=== PATIENT | female | born 1980 | race Hispanic/Latino ===

== ENCOUNTER 2022-07-11 23:00 | Emergency (ER) | payer SELFPAY ==
[2022-07-11] MEDS ORDERED: NA CHLORIDE 0.9% 1,000 ML ONE (23:10)
[2022-07-11 23:37] LABS: Urine Blood 3+ (Negative); Urine Glucose Negative (Negative); Urine Protein 1+ (Negative); Urine Specific Gravity <=1.005 (1.005-1.030)
[2022-07-11 23:57] LABS: Absolute Lymphocytes (CBC) 2.4 K/uL (0.7-4.9); Hematocrit 31.3 % (36.0-45.0); Lymphocytes % 29.1 % (15.3-44.8); MPV 7.5 fL (7.6-11.3); RBC Red Blood Cell Count 4.59 M/uL (3.86-4.86)
[2022-07-12 00:10] LABS: Barbiturates NEGATIVE (NEGATIVE); Benzodiazepines NEGATIVE (NEGATIVE); Cocaine NEGATIVE (NEGATIVE); METHAMPHETAM NEGATIVE (NEGATIVE); Methadone NEGATIVE (NEGATIVE); Opiates NEGATIVE (NEGATIVE); Phencyclidine NEGATIVE (NEGATIVE); THC Cannibis NEGATIVE (NEGATIVE)
[2022-07-12 00:11] LABS: Protime INR 1.07
[2022-07-12 00:33] LABS: SARS-COV-2 RT PCR NEGATIVE (NEGATIVE)
[2022-07-12 00:34] LABS: ALT/SGPT 17 U/L (12-78); AST/SGOT 9 U/L (15-37); Albumin 3.8 g/dL (3.4-5.0); Alkaline Phosphatase 92 U/L (45-117); BUN Blood Urea Nitrogen 6 mg/dL (7-18); Bicarbonate 27 mmol/L (21-32); Bilirubin Direct 0.1 mg/dL (0-0.2); Bilirubin Total 0.5 mg/dL (0.2-1.0); Glomerular Filtration Rate 113 ml/min (=/>90); Glucose Level 94 mg/dL (74-106); Protein, Total 7.3 g/dL (6.4-8.2); Sodium Level 138 mmol/L (136-145)
[2022-07-12 00:49] LABS: Potassium 2.9 mmol/L (3.5-5.1)
--- NOTE | 2022-07-12 01:00 | EDPHYS ---
Physician Documentation [facility] Name: Charlotte Frey Age: 41 yrs Sex: Female : 1980 Arrival Date: 07/11/2022 Time: 23:03 Bed 12 Private MD: ED Physician Cristino Moore HPI: 07/12 00:55 This 41 yrs old Female presents to ER via EMS with complaints of schizophrenia. rn 00:55 Pt states has been walking from [place], trying to make her way to [place], was rn found walking outside by PD, called EMS because of history of schizophrenia and patient not from here. Pt states she is homeless and walks from town to town sleeping on benches. No recent illness. Off her meds for months. Denies hallucinations/suicidal ideation/homicidal ideations. States would not have sought help if not made to do so by police. . The patient has experienced similar episodes in the past. The patient has not recently seen a physician. 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 - Social history:: Smoking status: unknown. - Family history:: not pertinent. - Hospitalizations: : No recent hospitalization is reported. ROS: 07/12 00:55 Constitutional: Negative for fever, chills, and weight loss, Eyes: Negative for injury, rn pain, redness, and discharge, Neck: Negative for injury, pain, and swelling, Cardiovascular: Negative for chest pain, palpitations, and edema, Respiratory: Negative for shortness of breath, cough, wheezing, and pleuritic chest pain, Abdomen/GI: Negative for abdominal pain, nausea, vomiting, diarrhea, and constipation, Back: Negative for injury and pain, MS/Extremity: Negative for injury and deformity, Skin: Negative for injury, rash, and discoloration, Neuro: Negative for headache, weakness, numbness, tingling, and seizure, Psych: Negative for depression, anxiety, suicide ideation, homicidal ideation, and hallucinations. Exam: 00:55 Constitutional: This is a well developed, well nourished patient who is awake, alert, rn and in no acute distress. Head/Face: Normocephalic, atraumatic. Eyes: Pupils equal round and reactive to light, extra-ocular motions intact. Lids and lashes normal. Conjunctiva and sclera are non-icteric and not injected. Cornea within normal limits. Periorbital areas with no swelling, redness, or edema. Neck: Trachea midline, no thyromegaly or masses palpated, and no cervical lymphadenopathy. Supple, full range of motion without nuchal rigidity, or vertebral point tenderness. No Meningismus. Cardiovascular: Regular rate and rhythm. No pulse deficits. Respiratory: No increased work of breathing, no retractions or nasal flaring. Abdomen/GI: Soft, non-tender Back: No spinal tenderness. No costovertebral tenderness. Full range of motion. Skin: Warm, dry MS/ Extremity: Pulses equal, no cyanosis. Neurovascular intact. Full, normal range of motion. Equal circumference. Neuro: Awake and alert, GCS 15, oriented to person, place, time, and situation. Cranial nerves II-XII grossly intact. Motor strength 5/5 in all extremities. Sensory grossly intact. Cerebellar exam normal. Normal gait. Psych: Awake, alert, with orientation to person, place and time. Behavior, mood are within normal limits. Not responding to internal stimuli, is pleasant. Vital Signs: 07/11 23:03 BP 90 / 60; Pulse 96; Resp 18; Temp 98.0(O); Pulse Ox 98% on R/A; Weight 68.95 kg; mw2 Height 5 ft. 2 in. (157.48 cm); 23:03 Body Mass Index 27.80 (68.95 kg, 157.48 cm) mw2 MDM: 23:04 Patient medically screened. rn 07/12 00:55 Differential Diagnosis schizophrenia, homelessness, malaise. Data reviewed: vital rn signs, nurses notes, lab test result(s), EKG, radiologic studies, CT scan, and as a result, I will discharge patient. Counseling: I had a detailed discussion with the patient and/or guardian regarding: the historical points, exam findings, and any diagnostic results supporting the discharge/admit diagnosis, lab results, radiology results, the need for outpatient follow up, to return to the emergency department if symptoms worsen or persist or if there are any questions or concerns that arise at home. Response to treatment: the patient's symptoms have mildly improved after treatment, and as a result, I will discharge patient. Special discussion: I discussed with the patient/guardian in detail that at this point there is no indication for admission to the hospital. It is understood, however, that if the symptoms persist or worsen the patient needs to return immediately for re-evaluation. Based on the history and exam findings, there is no indication for further emergent testing or inpatient evaluation. I discussed with the patient/guardian the need to see the primary care provider for further evaluation of the symptoms. 07/11 23:07 Order name: Acetaminophen; Complete Time: 00:55 rn 07/11 23:07 Order name: Basic Metabolic Panel; Complete Time: 00:55 rn 07/11 23:07 Order name: CBC with Diff; Complete Time: 00:55 rn 07/11 23:07 Order name: ETOH Level; Complete Time: 00:55 rn 07/11 23:07 Order name: Hepatic Function; Complete Time: 00:55 rn 07/11 23:07 Order name: PT-INR; Complete Time: 00:55 rn 07/11 23:07 Order name: CT Head Brain wo Cont rn 07/11 23:07 Order name: Ptt, Activated; Complete Time: 00:55 rn 07/11 23:07 Order name: Salicylate; Complete Time: 00:55 rn 07/11 23:07 Order name: Urine Drug Screen; Complete Time: 00:55 rn 07/11 23:08 Order name: COVID-19/FLU A+B; Complete Time: 00:55 rn 07/11 23:37 Order name: Test, Serum; Complete Time: 00:55 07/11 23:37 Order name: Urine Dipstick-Ancillary; Complete Time: 00:55 EDMS 07/11 23:07 Order name: EKG; Complete Time: 23:08 rn 07/11 23:07 Order name: EKG - Nurse/Tech; Complete Time: 23:34 rn 07/11 23:07 Order name: IV Saline Lock; Complete Time: 23:34 rn 07/11 23:07 Order name: Labs collected and sent; Complete Time: 23:34 rn 07/11 23:07 Order name: Urine Dipstick-Ancillary (obtain specimen); Complete Time: 23:34 rn Administered Medications: 07/11 23:33 Drug: NS 0.9% 1000 ml Route: IV; Rate: 1000 ml; Site: right antecubital; tw5 Disposition Summary: 07/12/22 01:00 Discharge Ordered Location: Home rn Problem: an ongoing problem rn Symptoms: have improved rn Condition: Stable rn Diagnosis - Schizophrenia, unspecified rn - Homelessness rn Followup: rn - With: Private Physician - When: As needed - Reason: Recheck today's complaints, Re-evaluation by your physician Discharge Instructions: - Discharge Summary Sheet rn - Schizophrenia rn - Managing Schizophrenia rn Forms: - Medication Reconciliation Form rn - Thank You Letter rn - Antibiotic rn intensive care unit - Prescription Opioid Use rn Signatures: Dispatcher [employer] Cristino Reardon MD MD rn Wood, Tiffany tw5
--- NOTE | 2022-07-12 01:00 | ER ---
Nurse's Notes [facility] Name: Charlotte Frey Age: 41 yrs Sex: Female : 1980 Arrival Date: 07/11/2022 Time: 23:03 Bed 12 Private MD: Diagnosis: Schizophrenia, unspecified;Homelessness Presentation: 07/11 23:04 Chief complaint: EMS states: "PD called us because she was walking and she couldn't tw5 answer any questions about herself. She states that she has been walking from [facility] is trying to get to [place].". Ebola Screen: Unable to complete the Ebola screening because: The patient is disoriented. 23:04 Method Of Arrival: EMS: [facility] tw5 07/12 00:07 Coronavirus screen: Vaccine status: Patient reports being unvaccinated. Initial Sepsis tw5 Screen: Does the patient meet any 2 criteria? No. Patient's initial sepsis screen is negative. Does the patient have a suspected source of infection? No. Patient's initial sepsis screen is negative. Risk Assessment: Do you want to hurt yourself or someone else? Patient reports no desire to harm self or others. Onset of symptoms is unknown. 00:07 Acuity: DIONISIO 2 tw5 Triage Assessment: 00:07 General: Appears unkempt, Behavior is cooperative, anxious. 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 - Social history:: Smoking status: unknown. - Family history:: not pertinent. - Hospitalizations: : No recent hospitalization is reported. Screenin:37 Abuse screen: Denies threats or abuse. Denies injuries from another. Nutritional tw5 screening: No deficits noted. Tuberculosis screening: No symptoms or risk factors identified. Fall Risk Mental Status- Overestimates/Forgets Limitations (15 pts.). Assessment: 23:11 Musculoskeletal: No deficits noted. patient is able to ambulate to restroom without tw5 difficulty. 23:34 General: Appears unkempt, Behavior is calm, cooperative. General: Reports "I have been tw5 walking from [facility]. I am just trying to disappear.". Pain: Denies pain. Neuro: Level of Consciousness is awake, alert, obeys commands, confused, Oriented to person. 07/12 00:06 Respiratory: No deficits noted. : Urine is blood tinged. 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 Vital Signs: 07/11 23:03 BP 90 / 60; Pulse 96; Resp 18; Temp 98.0(O); Pulse Ox 98% on R/A; Weight 68.95 kg; mw2 Height 5 ft. 2 in. (157.48 cm); 23:03 Body Mass Index 27.80 (68.95 kg, 157.48 cm) mw2 ED Course: 23:03 Patient arrived in ED. mw2 23:04 Amy Delatorre is Primary Nurse. tw5 23:04 Cristino Moore MD is Attending Physician. rn 23:32 EKG done, by ED staff, reviewed by Cristino Moore MD. mw2 23:33 Inserted saline lock: 20 gauge in right antecubital area, using aseptic technique. mw2 Blood collected. 23:34 Acetaminophen Sent. tw5 23:34 Basic Metabolic Panel Sent. tw5 23:34 CBC with Diff Sent. tw5 23:34 ETOH Level Sent. tw5 23:34 Hepatic Function Sent. tw5 23:34 PT-INR Sent. tw5 23:34 COVID-19/FLU A+B Sent. tw5 23:34 Ptt, Activated Sent. tw5 23:34 Salicylate Sent. tw5 23:34 Urine Drug Screen Sent. tw5 23:37 Patient has correct armband on for positive identification. Placed in gown. Bed in low tw5 position. Call light in reach. Door closed. Noise minimized. Moved to private room. Warm blanket given. Verbal reassurance given. 23:37 Patient given socks, peripad, and new undergarments. tw5 07/12 00:06 CT Head Brain wo Cont In Process Unspecified. EDMS 00:07 Triage completed. tw5 00:07 No provider procedures requiring assistance completed. tw5 00:07 Arm band placed on Patient placed in an exam room. tw5 01:13 IV discontinued, intact, bleeding controlled, No redness/swelling at site. Pressure tw5 dressing applied. Administered Medications: 07/11 23:33 Drug: NS 0.9% 1000 ml Route: IV; Rate: 1000 ml; Site: right antecubital; tw5 Medication: 23:37 VIS not applicable for this client. tw5 Outcome: 07/12 01:00 Discharge ordered by . jalen 01:13 Discharged to Unknown patient states she has a home tw5 01:13 Condition: stable 01:13 Discharge instructions given to patient, Instructed on discharge instructions, follow up and referral plans. Demonstrated understanding of instructions, follow-up care. 01:15 Patient left the ED. tw5 Signatures: Dispatcher [employer] EDCristino Brown MD MD rn [place], MyKena mw2 Amy Delatorre tw5 Corrections: (The following items were deleted from the chart) 07/11 23:05 23:03 BP 90 / 60; Pulse 96bpm; Resp 18bpm; Pulse Ox 98% RA; Temp 98.0F Oral; mw2 mw2
[2022-07-12 01:38] VITALS: BP 90/60; TEMP 98; O2SAT 98
--- NOTE | 2022-07-12 16:32 | EKG ---
Test Date: 2022-07-11 Test Time: 23:30:11 Auto Polisher: RENETTA MEASUREMENT RESULTS: Intervals: Rate: 81 DE: 134 QRSD: 70 QT: 394 QTc: 457 [place]: P: 64 DE: 134 QRS: 59 T: 8 INTERPRETIVE STATEMENTS: Normal sinus rhythm Normal ECG No previous ECG available for comparison Electronically Signed On 07-12-22 16:32:01 CERTIFIED LOW VISION THERAPIST by Phong Reinoso
--- NOTE | 2022-07-12 17:22 | RAD REPORT ---
EXAM DESCRIPTION: CT - Head Brain Wo Cont - 07/12/2022 12:43 am CLINICAL HISTORY: 41 years Female AMS TECHNIQUE: Contiguous axial CT images obtained through the brain without IV contrast. Coronal and sa gittal reformats also provided. This CT exam was performed according to our departmental dose-optimization program, which includes on e or more of the following dose reduction techniques: automated exposure control, adjustment of the m A and/or kV according to patient size, and/or use of iterative reconstruction technique. COMPARISON: No prior exams provided for comparison. FINDINGS: There is no intracranial hemorrhage, extra-axial collection, or acute transcortical infarc tion. The ventricles are normal in size and contour without mass-effect or midline shift. Osseous structures are normal. The paranasal sinuses and mastoid air cells are clear. IMPRESSION: No acute intracranial abnormalities. Electronically signed by: Maureen Green MD 07/12/2022 12:11 AM PERSONAL CARE AID Due to temporary technical issues with the PACS/Fluency reporting system, reports are being signed by the in house radiologists without review as a courtesy to insure prompt reporting. The interpreting radiologist is fully responsible for the content of the report.
== END 2022-07-12 01:15 | disposition home or self-care (01) ==
LOC: ER 23:00
DX: F20.9 Schizophrenia, unspecified (principal); Z59.00 Homelessness unspecified
CPT/HCPCS: 0240U; 36415; 70450; 80048; 80076; 80307; 80320; 80329; 81003; 84703; 85025; 85610; 85730; 93005; 99284; J7030